=== PATIENT | female | born 1965 | race Caucasian/White ===

== ENCOUNTER 2017-09-19 07:33 | Day surgery (SDC) | payer OTHER ==
[~2017-09-19 07:33] MED LIST: NA PHOS,M-B/NA PHOS,DI-BA (ADULT) 133 ML ENEMA PR ONE; PROPOFOL INJ 200 MG/20 ML VIAL IV ONE
[2017-09-19 08:56] VITALS: BP 121/70
--- NOTE | 2017-09-19 14:00 | Operative Report ---
Operative Report DATE OF SURGERY: 09/19/17 Operative Report: The risks, benefits and alternatives of the procedure including risks of bleeding, perforation requiring surgery are explained to the patient in detail and informed consent is obtained. Patient is taken back to the endoscopy suite and placed in a left, lateral decubital position. Timeout was called. Propofol medications administered. A rectal examination is done which did not reveal any masses, tears or fissures. An Olympus videoscope was inserted into the patient's rectum. The scope was then carefully advanced all the way to the cecum. The cecum was identified by the usual anatomical landmarks including the ileocecal valve as well as the appendiceal office. Photodocumentation is obtained. The scope was then sequentially pulled back via the various segments of the colon including the ascending colon, transverse colon, splenic flexure, descending colon and finally in to the rectosigmoid portions of the colon. Retroflexion maneuvers performed. PREOPERATIVE DIAGNOSIS: Personal history of polyp POSTOPERATIVE DIAGNOSIS: Colon polyp was removed via biopsy forceps. Internal hemorrhoids OPERATION: Colonoscopy with biopsy SURGEON: MONICA RICHEY ANESTHESIA: LMAC TISSUE REMOVED OR ALTERED: As noted above. COMPLICATIONS: None. ESTIMATED BLOOD LOSS: None. INTRAOPERATIVE FINDINGS: As described above. PROCEDURE: Patient tolerated procedure well. No immediate postprocedure complications are noted. Patient discharged in good condition. Discharge date 09/19/2017. Discharge diet: Regular. Discharge activity: Regular. 2-3 week follow-up to discuss findings. 5 year surveillance colonoscopy. Patient is instructed to call the office or proceed to the emergency room should there be any further problems or questions. We will wait and pathology.
== END 2017-09-19 08:55 | disposition home or self-care (01) ==
LOC: END 07:33
PROVIDERS: ATTEND Internal Medicine Gastroenterology
DX: Z12.11 Encounter for screening for malignant neoplasm of colon (principal); K21.9 Gastro-esophageal reflux disease without esophagitis; D12.8 Benign neoplasm of rectum; K64.8 Other hemorrhoids; F17.210 Nicotine dependence, cigarettes, uncomplicated; Z86.010 Personal history of colon polyps
CPT/HCPCS: 45380; 88305 ×2; J3490; J2704; 811